=== PATIENT | male | born 1990 | race Caucasian/White ===

== ENCOUNTER 2016-10-26 22:55 | Emergency (ER) | payer OTHER ==
[2016-10-27 01:16] LABS: HEMOGLOBIN 16.4 gm/dl (14.0-17.5); RED BLOOD COUNT 5.25 M/UL (4.20-5.50); WHITE BLOOD COUNT 9.7 K/UL (4.5-11.0)
[2016-10-27 01:38] LABS: BUN/CREATININE RATIO 6 (0-10)
== END 2016-10-27 05:28 | disposition home or self-care (01) ==
LOC: ER1 22:55
PROVIDERS: Family Medicine
DX: J06.9 Acute upper respiratory infection, unspecified (principal); F17.210 Nicotine dependence, cigarettes, uncomplicated
CPT/HCPCS: 36415; 71020; 80053; 81001; 85025; 87081; 87880; 96360; 99283; J7030